=== PATIENT | female | born 1935 | race Caucasian/White ===

== ENCOUNTER 2018-08-11 09:53 | Inpatient (IN) ==
[2018-08-11] MEDS ORDERED: CARDIZEM IV ONE (10:22)
[2018-08-11 10:36] LABS: BASO# 0.02 X1000 (0.0-0.2); BASO% 0.2 % (0.0-0.8); EOS# 0.01 X1000 (0.0-0.7); EOS% 0.1 % (0.0-10.0); HEMATOCRIT 41.8 % (37.0-47.0); HEMOGLOBIN 13.8 g/dL (12.0-16.0); IMM GRAN# 0.02 X1000 (0.0-0.04); IMM GRAN% 0.2 % (0.0-0.5); LYMPH# 1.86 X1000 (1.2-3.4); LYMPH% 19.2 % (20.5-51.1); MCH 31.2 PG (27-31); MCV 94.6 FL (81-99); MONO# 0.68 X1000 (0.11-0.59); MPV 10.7 FL (7.4-10.4); NEUT% 73.3 % (42.2-75.2); PLT 331 X1000 (130-400); RBC 4.42 XMIL (4.2-5.4); RDW 13.6 % (11.5-14.5); WBC 9.69 X1000 (4.8-10.8)
--- NOTE | 2018-08-11 10:41 | Diag Imaging Result Doc PS360 ---
EXAM: CHEST-1 VIEW 08/11/2018 HISTORY: palpitations TECHNIQUE: AP portable upright at 1032 COMMENT: There are bilateral pleural effusions. There is interstitial pulmonary edema. There is compressive atelectasis in both lower lobes and the possibility of pneumonia cannot be excluded. None of these findings were present on 11/17/2012. IMPRESSION: Pleural effusions pulmonary edema and bibasilar atelectasis. Electronically signed by Bao Holley 08/11/2018 10:38 AM
[2018-08-11 10:50] LABS: INR 0.98; PROTIME 13.8 Seconds (11.0-16.0); PTT 26.7 Seconds (22.3-41.8)
[2018-08-11 11:00] LABS: ALB/GLOB RATIO 2.4; ALBUMIN 4.6 g/dL (3.5-5.0); CALCIUM 10.1 mg/dL (8.8-10.2); CREATININE 0.9 mg/dL (0.5-0.9); MAGNESIUM 2.2 mg/dL (1.5-2.7); POTASSIUM 4.4 mmol/L (3.5-5.1); TOTAL BILIRUBIN 0.85 mg/dL (0.20-1.00); TOTAL PROTEIN 6.5 g/dL (6.3-8.3)
--- NOTE | 2018-08-11 12:35 | EKG Report ---
Test Performed on : 08/11/2018 10:02:23 AM Test Reason : ED. NO EKG ORDER FOR MUSE Blood Pressure : / mmHG Vent. Rate : 138 BPM Atrial Rate : 366 BPM P-R Int : 000 ms QRS Dur : 084 ms QT Int : 320 ms P-R-T Axes : 000 084 047 degrees QTc Int : 484 ms Atrial flutter. with variable AV block. Nonspecific ST abnormality Abnormal ECG No previous ECGs available Unconfirmed Result
[2018-08-11] MEDS ORDERED: LASIX IV ONE (12:38)
[2018-08-11] MEDS: CARDIZEM 125 MG in NS 100 ML IV SCH (12:50)
[2018-08-11 13:00] LABS: T4 9.09 ug/dL (4.60-12.00); TSH 3.35 uIUmL (0.27-4.20)
[2018-08-11 15:23] LABS: BASO# 0.02 X1000 (0.0-0.2); BASO% 0.2 % (0.0-0.8); EOS# 0.01 X1000 (0.0-0.7); EOS% 0.1 % (0.0-10.0); HEMATOCRIT 40.1 % (37.0-47.0); IMM GRAN# 0.02 X1000 (0.0-0.04); IMM GRAN% 0.2 % (0.0-0.5); LYMPH# 2.06 X1000 (1.2-3.4); LYMPH% 22.3 % (20.5-51.1); MCH 31.1 PG (27-31); MCHC 32.4 g/dL (33-37); MCV 95.9 FL (81-99); MONO# 0.68 X1000 (0.11-0.59); MONO% 7.4 % (1.7-9.3); MPV 10.3 FL (7.4-10.4); NEUT# 6.46 X1000 (1.4-6.5); NEUT% 69.8 % (42.2-75.2); PLT 301 X1000 (130-400); RBC 4.18 XMIL (4.2-5.4); RDW 13.6 % (11.5-14.5); WBC 9.25 X1000 (4.8-10.8)
--- NOTE | 2018-08-11 15:36 | HISTORY AND PHYSICAL ---
PRIMARY CARE PROVIDER: Dr. Wilberto Mathews in [place]. BUSINESS ECONOMIST: Dr. Chopra at [facility] in [place]. CHIEF COMPLAINT: Shortness of breath. HISTORY OF PRESENT ILLNESS: Ms. Mcnamara is a very anxious 83-year-old female who carries a past medical history of anxiety, hyperlipidemia, coronary artery disease per her report, status post 7 stents, recent diagnosis in May with pneumonia, last week was diagnosed with bronchitis. This was an [place]; however, family states they did not believe that she had either one. She is on Cardizem for which she calls an "irregular heart rate", Aricept for "memory only", and on several medications for sleep. Per family, report she was headed to [place] today to see Dr. Chopra for her heart palpitations. However, she got so anxious she could not make it to her appointment. She just had to come to the ER today. She was found to be in atrial fibrillation/atrial flutter at 138 beats per minute. She was placed on a Cardizem drip. Chest x- ray showed pleural effusions, pulmonary edema and bibasilar atelectasis. She was given IV Lasix and will be admitted to [facility] with cardiology consult. Per family report, the patient's anxiety started 20 years ago when she became a and she would go to the doctor frequently; however, she remarried and became a again 2 years ago. Her anxiety has continued to progress. Per 3 siblings at the bedside, as of right now, there is a total of 5, she still lives at home alone. She does all of the care of her won home although she does not have to because they make her meals, they do her medications. They have someone come and clean her house as well as they all do her outside yard work, but they say at least 3 to 4 days out of the week, she has to be taken to various doctors appointments because she believes something is wrong with her or she wants to go to the ER every day. She calls the ambulance on a daily basis to come pick her. If the ambulance does not come pick her up, she will call the elders of the charge. She will call neighbors, who then in turn call the family and they have to go to her residence every day to make sure she is taking her medications and make sure that she actually has a reason to go to the hospital. However, sometimes she will call people who are nurses that she knows she will take her medication to their house and get their opinion. She takes medications as she sees fit. She was recently given an inhaler with Symbicort that they states she wears around her neck and she will just take several puffs throughout the day or any time she is feeling short of breath, even though it is a once a day inhaler. She reports that she has not been sleeping well because she cannot breathe even though she is on 1 medication for anxiety and 1 medication for sleep and 1 for muscle relaxer. She states that she normally takes her medications as she is supposed to, but then again she does not feel that she needs some of them and she occasionally drops them on the floor and the family will have to come and rearrange her medications. They stated she recently just got a bottle of Xanax. She took it to a nurse friend and now the bottle is missing. They are unsure of what happened to the medication. She does have home health with [facility]. She calls them frequently and they will come out and go over her medications with her and they will also help her know what each medication for and writes when she is to take it. The family is concerned with her well-being as well as the level of her anxiety, so we have spoken, we will consult [facility] and they would also like for her to speak with Deborah Vargas as well, and we will also get Palliative Care involved to speak with her about her disease progression as well as goals of care as far as her disease is concerned. PAST MEDICAL HISTORY: 1. Coronary artery disease status post 7 stents. 2. Per patient report, irregular heart rate from rheumatic fever as a child. She is on Cardizem. I think this is for her atrial fibrillation; however, she has not heard that word before. 3. Probable dementia. She does take Aricept. 4. Questionable recent diagnosis for pneumonia and bronchitis for which she was given a steroid inhaler as well as some antibiotics. 5. Anxiety. 6. Hyperlipidemia. 7. Gastroesophageal reflux disease. 8. Insomnia. PAST SURGICAL HISTORY: Status post 7 stents. SOCIAL HISTORY: She is from [place], which is where she resides. She lives alone. She does have home health with [facility]. She is a 2-time . No alcohol, tobacco, or illicit drug use. FAMILY HISTORY: Reviewed and noncontributory. REVIEW OF SYSTEMS: A 14 point review of systems complete and negative except for those mentioned in HPI. ALLERGIES: No known drug allergies. HOME MEDICATIONS: 1. Xanax XR 0.5 mg p.o. daily. 2. Aspirin 1 tab p.o. daily. 3. Lipitor 40 mg p.o. daily. 4. Symbicort 2 puffs at bedtime. 5. Keflex 500 mg p.o. t.i.d. 6. Vitamin D3, 5000 units p.o. daily. 7. Plavix 75 mg p.o. daily. 8. Cardizem 120 mg p.o. daily. 9. Aricept 5 mg p.o. at bedtime. 10. Ezetimibe 10 mg p.o. daily. 11. Loratadine 1 cap p.o. at bedtime. 12. Centrum Silver for Women 1 tab p.o. daily. 13. [place] Trevose-3 fatty acid fish oil 1 each p.o. daily. 14. Prilosec 20 mg p.o. daily. 15. Seroquel 25 mg p.o. at bedtime. 16. Zanaflex 4 mg p.o. at bedtime. 17. Desyrel 1 tab p.o. at bedtime. PHYSICAL EXAMINATION: VITAL SIGNS: Temperature is 97.8 degrees, heart rate 74, upon arrival 138, respirations 21, blood pressure 131/58, O2 is 96% on room air. GENERAL: Ms. Mcnamara is an 83-year-old female who appears somewhat anxious. I did watch her ambulate with the nurse to the restroom and back. She was short of breath for a couple of minutes after ambulating and was unable to speak in full sentences. However, she did recover quite quickly. HEENT: Atraumatic, normocephalic. PERRL. NECK: Supple. Trachea midline. No JVD appreciated. CARDIOVASCULAR: Irregular rhythm. No murmurs, gallops, or rubs noted. RESPIRATORY: Lung sounds relatively clear, bilaterally decreased in the bases. GASTROINTESTINAL: Soft, nontender, nondistended. Positive bowel sounds x4 quadrants. EXTREMITIES: Negative for edema. No clubbing, no cyanosis. NEUROLOGIC: Patient is anxious, alert, awake x4. Follows commands. Moves all extremities. No focal deficits noted. SKIN: Warm, dry and intact. DIAGNOSTIC DATA: 1. Chest x-ray. Pleural effusions, pulmonary edema, bibasilar atelectasis. 2. EKG shows atrial flutter with a variant AV block, nonspecific ST abnormality at 138 beats per minute. QTc was 484. LABORATORY DATA: White count 9, hemoglobin and hematocrit 13 and 41, platelet count is 331,000. Sodium 141, potassium 4.4, BUN 17, creatinine 0.9, blood glucose is 120. Mag 2.2. AST 50, ALT 99, alkaline phosphatase 130. ProBNP is 4893. TSH was 3.35, T4 of 9.09. ASSESSMENT AND PLAN: 1. Atrial flutter/atrial fibrillation. The patient has been placed on a Cardizem drip. She will be moved to [facility]. We will continue to trend cardiac enzymes. Consult Dr. Luther with Cardiology. Check an echocardiogram. Continue her aspirin and Plavix for now. She was on p.o. Cardizem. She states she did know that she had an irregular heart rhythm, but she was unaware of any atrial fibrillation. She thought it was an irregular heart rate from rheumatic fever as a child. 2. Congestive heart failure. However, patient is not on any diuretics or any other medications for her heart failure. She does have pulmonary edema on her chest x-ray as well as pleural effusions could. Be secondary to her atrial fibrillation. However, she has reported several weeks of not being able to lie down flat, has to sleep pretty much sitting up or propped up on several pillows. She does get short of breath with ambulation. Again, we will check an echocardiogram. Get Cardiology involved. Continue on IV Lasix. 3. Anxiety. Will continue on her home Xanax. Per family report, she is trying to either go to the doctor or the ER daily. She calls the ambulance daily. She calls home health on a regular basis to come to her residence. She will call neighbors, friends as well as other people who she knows in the nursing field will get their opinion about medications and she will base her taking of these medications off their opinions as well as several different physicians opinions on medication. Family states she makes at least 3 to 4 different doctors appointments weekly. However, surprisingly, she has not really been to this ER very much. She mainly goes to [place] and in an ED in [place]. 4. Transaminitis. We will hold her statins. Go ahead and check a hepatitis profile. Go ahead and check a right upper quadrant ultrasound. It is probably from congestion, but we will continue to monitor. There was no right upper quadrant tenderness upon examination. No nausea, no vomiting. 5. Insomnia. Will continue her home medications. 6. Coronary artery disease status post 7 stents per patient report. We will continue her aspirin and Plavix. Await cardiology's recommendations. Again, she follows Dr. Chopra at [facility] in [place]. 7. Gastroesophageal reflux disease. We will continue her Prilosec. 8. Recent diagnosis of questionable pneumonia and bronchitis. Per family report, she had gone to the ED so many times, they just feel like they had just diagnosed her with pneumonia and bronchitis and given her an inhaler that she has been abusing as well as antibiotics. However, her chest x-ray does not show any signs of pneumonia or bronchitis, so we will hold those medications for now. DISPOSITION: We will get [facility] as well as Palliative Care involved. Given her anxiety, again, we will probably get Deborah Vargas to come speak to her once her acute illness has resolved. The family and patient are in agreement with that as well. Further recommendations to follow physician evaluation, laboratory, and diagnostic data. Dictated by HARLAN Knet for Gaudencio Graham MD cc: MD Mc Ledezma MD Ramesh Reddy
[2018-08-11] MEDS ORDERED: LANOXIN IV ONE ×2 (15:41→18:00)
--- NOTE | 2018-08-11 16:34 | Diag Imaging Result Doc PS360 ---
EXAM: US GB < RUQ (LIMITED) 08/11/2018 HISTORY: elevated LFTs TECHNIQUE: Right upper quadrant ultrasound COMMENT: The pancreatic head is normal in appearance remainder is not well seen. The visualized portions of the aorta and inferior vena cava are within normal limits. The posterior portions of the liver are not as well seen however the liver is otherwise unremarkable in appearance. The gallbladder is clear but tender. There is no evidence of biliary dilatation the common bile duct measuring 5 mm. There is antegrade flow in the portal vein. The right kidney is without evidence of hydronephrosis or mass. There is a right pleural effusion. IMPRESSION: Positive sonographic Curry's sign without evidence of morphologic abnormality. Right pleural effusion. Electronically signed by Bao Holley 08/11/2018 4:32 PM
[2018-08-11] MEDS: LASIX IV SCH ×2 (18:12→20:30)
[2018-08-11] MEDS: ZANAFLEX PO SCH (20:29)
[2018-08-11] MEDS: SEROQUEL PO SCH (20:29)
[2018-08-11] MEDS: DESYREL PO SCH (20:29)
[2018-08-11] MEDS: ARICEPT PO SCH (20:30)
[2018-08-11] MEDS: CLARITIN PO SCH (20:30)
[2018-08-11] MEDS ORDERED: VALIUM PO ONE (21:27)
[2018-08-11 22:28] LABS: MAGNESIUM 1.9 mg/dL (1.5-2.7); POTASSIUM 3.6 mmol/L (3.5-5.1)
[2018-08-11] MEDS ORDERED: HALDOL IV PRN (23:10)
--- NOTE | 2018-08-11 23:14 | PROGRESS NOTE ---
DATE: 08/11/2018 SUBJECTIVE: Patient has no focal complaints. She presented with shortness of breath and chest pain. She has most likely a history of atrial fibrillation but it is not clear. She sees Cardiology in [place]. History of CAD as well. She was found to have atrial fibrillation with rapid ventricular response. The patient was admitted for treatment. Her pulmonary exam is fairly clear, some rales. She has an irregularly irregular heartbeat. She will be placed on Cardizem. Have a workup for atrial fibrillation, including CHF workup, echo, cardiac enzymes, thyroid function, and questionable pneumonia. We will continue to monitor closely. This is a saam-bd-onse encounter note with Kyara Armstrong. cc: Gaudencio Graham MD
[2018-08-12] MEDS: CARDIZEM 125 MG in NS 100 ML IV SCH (04:51)
[2018-08-12 05:44] LABS: BASO# 0.01 X1000 (0.0-0.2); BASO% 0.2 % (0.0-0.8); EOS# 0.04 X1000 (0.0-0.7); EOS% 0.6 % (0.0-10.0); HEMATOCRIT 37.1 % (37.0-47.0); HEMOGLOBIN 12.1 g/dL (12.0-16.0); LYMPH# 1.68 X1000 (1.2-3.4); LYMPH% 25.4 % (20.5-51.1); MCH 30.9 PG (27-31); MCHC 32.6 g/dL (33-37); MCV 94.6 FL (81-99); MONO% 10.6 % (1.7-9.3); MPV 10.5 FL (7.4-10.4); NEUT# 4.18 X1000 (1.4-6.5); NEUT% 63.2 % (42.2-75.2); PLT 271 X1000 (130-400); RBC 3.92 XMIL (4.2-5.4); RDW 13.2 % (11.5-14.5); WBC 6.61 X1000 (4.8-10.8)
[2018-08-12] MEDS: LASIX IV SCH ×3 (06:02→17:47)
[2018-08-12] MEDS: PRILOSEC PO SCH (06:02)
[2018-08-12 07:07] LABS: AGAP 11; ALB/GLOB RATIO 1.8; ALBUMIN 3.7 g/dL (3.5-5.0); ALKALINE PHOSPHATASE 104 U/L (32-104); BUN 17 mg/dL (8-22); CALCIUM 9.4 mg/dL (8.8-10.2); CHLORIDE 106 mmol/L (98-107); COSMO 285; CREATININE 0.8 mg/dL (0.5-0.9); ESTIMATED GFR > 60; GLUCOSE 105 mg/dL (70-104); GOT 36 U/L (10-30); GPT 74 U/L (10-36); POTASSIUM 3.5 mmol/L (3.5-5.1); SODIUM 142 mmol/L (136-145); TCO2 25 mmol/L (25-35); TOTAL PROTEIN 5.8 g/dL (6.3-8.3)
--- NOTE | 2018-08-12 07:12 | Diag Imaging Result Doc PS360 ---
EXAM: CHEST-PORTABLE 08/12/2018 HISTORY: follow up chf TECHNIQUE: AP portable at 0536 COMMENT: There is cardiomegaly. Compared to 08/11/2018 the pleural fluid collections have diminished considerably. There continues to be some interstitial pulmonary edema. IMPRESSION: Improved pleural effusions. Electronically signed by Bao Holley 08/12/2018 7:09 AM
--- NOTE | 2018-08-12 07:59 | EKG Report ---
Test Performed on : 08/12/2018 06:53:33 AM Test Reason : afib/flutter Blood Pressure : / mmHG Vent. Rate : 074 BPM Atrial Rate : 340 BPM P-R Int : 000 ms QRS Dur : 096 ms QT Int : 480 ms P-R-T Axes : 000 078 115 degrees QTc Int : 532 ms Atrial flutter. with variable AV block. with premature ventricular or aberrantly conducted complexes. T wave abnormality, consider anterior ischemia Prolonged QT Abnormal ECG When compared with ECG of 11-AUG-2018 10:02, (Unconfirmed) Vent. rate has decreased BY 64 BPM T wave inversion now evident in Anterior leads Unconfirmed Result
[2018-08-12] MEDS ORDERED: ASPIRIN EC PO SCH (09:00)
[2018-08-12] MEDS: VITAMIN D PO SCH (09:14)
[2018-08-12] MEDS: LANOXIN PO SCH (09:14)
[2018-08-12] MEDS: XANAX XR PO SCH (09:14)
[2018-08-12] MEDS: ELIQUIS PO SCH ×2 (09:19→20:07)
[2018-08-12] MEDS: FISH OIL CONCENTRATE PO SCH (09:19)
[2018-08-12] MEDS: CENTRUM SILVER PO SCH (09:19)
[2018-08-12] MEDS: PLAVIX PO SCH (09:19)
[2018-08-12] MEDS: LIPITOR PO SCH (09:19)
--- NOTE | 2018-08-12 13:30 | ECHO REPORT ---
ORDER DATE: 08/11/2018 INTERPRETING PHYSICIAN: Dr. Pool REQUESTING PHYSICIAN: CLINICAL INDICATIONS: 83-year-old female with atrial flutter, atrial fibrillation. M-MODE MEASUREMENTS: Left ventricle end diastole: 5.2 cm. Left ventricle end systole: 3.5 cm. Posterior wall: 1.1 cm. Interventricular septum: 1.1 cm. Left atrium: 5.5 cm. Aortic root: 2.9 cm. SUMMARY OF 2-DIMENSIONAL IMAGIN. The patient is in atrial fibrillation. 2. The left ventricle is not dilated. It shows preserved contractility, ejection fraction estimated at 55% to 60%. 3. The aortic valve opens normal. Color flow mapping indicates [id number] degree of regurgitation. 4. The pulmonic valve shows some [id number] degree of regurgitation. 5. The mitral valve is abnormal. It is scarred and it shows the classic hockey-stick appearance from rheumatic disease. 6. There is mild degree of mitral valve stenosis. The maximum gradient is 16 mm, mean gradient is 6 mm. 7. There is moderately severe degree of mitral regurgitation. 8. The left atrium is markedly enlarged. 9. The right atrium is moderately to significantly enlarged. 10.The tricuspid valve shows moderate degree of regurgitation. 11.Pulmonary pressure is estimated 55-60 mmHg. 12.There are bilateral pleural effusions. 13.There is a tiny pericardial effusion. SUMMARY: The study shows: 1. Preserved left ventricular systolic function, ejection fraction 55% to 60%. 2. Abnormal mitral valve with evidence of rheumatic valve disease with a mild degree of mitral valve stenosis and moderately severe degree of mitral regurgitation. 3. Markedly enlarged left atrium. 4. Bilateral pleural effusions. 5. Pulmonary systolic pressure of 55-60 mmHg. 6. Yjid-kn-ipfmeepe degree of aortic regurgitation with slight scarring of the aortic valve. Clinical correlation is strongly recommended. Consider transesophageal echocardiogram for further evaluation of the mitral valve leaflets. cc: Champ Pool MD
[2018-08-12] MEDS ORDERED: FLEXERIL PO PRN (14:35)
--- NOTE | 2018-08-12 15:00 | CONSULTATION ---
DATE OF CONSULTATION: 08/12/2018 IMPRESSION: 1. Atrial fibrillation with rapid ventricular rate with history of atrial fibrillation in the past. 2. Atypical chest pain, probably noncardiac. 3. 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 Patient also has mild to moderate aortic regurgitation. 4. Moderate pulmonary hypertension by Doppler. 5. Atherosclerotic coronary disease with multiple coronary stents in the past. 6. Suspected dementia. 7. Hyperlipidemia. RECOMMENDATIONS: 1. Add metoprolol for rate control as IV Cardizem is discontinued. 2. Continue digoxin. 3. Agree with switching from aspirin and Plavix to Eliquis 5 mg p.o. b.i.d., as patient has significant CHADS-VASc score and risk for thromboembolism related to her atrial fibrillation. 4. Agree with diuresis. 5. Conservative cardiovascular management overall. HISTORY: This 83-year-old white female with past history of atrial fibrillation, atypical chest pain, atherosclerotic coronary disease, rheumatic heart disease, suspected dementia, and anxiety was admitted through the emergency room for atrial fibrillation with rapid ventricular rate management. She normally sees a warehouse administrative assistant in [place]. She relates that she has recently had bronchitis. She describes some symptoms of shortness of breath and productive cough for which she was treated for bronchitis. She has had some recent fleeting sharp to dull left chest discomfort. For this reason, she felt she needed to go to [place] for evaluation. The fleeting chest discomfort seemed to be persistent and recurrent, and for this reason, she came to the emergency room here, thinking she could not make it to [place]. She was found to be in atrial fibrillation with rapid ventricular rate. She was also found to have bilateral pleural effusions and evidence of congestive heart failure. She has been started on intravenous Cardizem, Eliquis, and is being diuresed. She is a rather difficult historian, as she seems to be rather vague in describing her symptoms and has some memory issues. She does not describe anything that sounds like angina. PAST MEDICAL HISTORY: 1. Atrial fibrillation. 2. Rheumatic heart disease. 3. Atherosclerotic coronary disease with multiple previous coronary stents in the past. 4. Suspected dementia. She is being treated with Aricept. 5. Anxiety. 6. Hyperlipidemia. 7. Gastroesophageal reflux. ALLERGIES: She has no known drug allergies. MEDICATIONS PRIOR TO ADMISSION: As listed. SOCIAL HISTORY: She resides in her home in [place]. She does have siblings in the area and also has home health with [facility]. She is a . She does not smoke or use alcohol. FAMILY HISTORY: Negative for premature coronary disease. REVIEW OF SYSTEMS: Pulmonary: Noteworthy for recent cough and shortness of breath felt to be bronchitis, otherwise negative. Gastrointestinal: Negative. Constitutional: Negative. Remainder of the review of systems negative/noncontributory with 14 total systems reviewed. PHYSICAL EXAMINATION: General: An elderly white female in no distress on room air. Vital signs: Blood pressure 126/59, heart rate 77 and irregular with ECG monitor showing atrial fibrillation, oxygen saturation 98%. HEENT: Extraocular movements intact. Mucous membranes moist. Neck: Supple without jugular venous distention. Carotid bruits cannot be appreciated. Chest: Auscultation of the chest reveals diminished breath sounds in the most dependent part of the bases bilaterally. Cardiac: Exam reveals an irregular rate and rhythm without appreciable murmur or gallop. Abdomen: Soft. Bowel sounds are normal. Extremities: Without edema. Neurologic: Exam reveals her to be alert and responsive. Speech is fluent. She moves all 4 extremities equally well. PERTINENT DATA: A 12-lead EKG demonstrates atrial fibrillation with occasional premature ventricular aberrantly conducted complex, nonspecific T-wave abnormality, and mild QT prolongation. Echocardiography report indicates mild rheumatic mitral stenosis with moderate to severe mitral regurgitation, mild to moderate aortic regurgitation, moderate pulmonary hypertension by Doppler, and normal left ventricular ejection fraction. LABORATORY DATA: Includes a white blood cell count of 6.61, hematocrit 37.1 hemoglobin 12.1, platelet count 271,000. Sodium 142, potassium 3.5, chloride 106, carbon dioxide 25, BUN 17, creatinine 0.8, glucose 105. Initial pro-B-type natriuretic peptide level 4893. Troponin T less than 0.01. TSH 3.35. cc: Tucker Louis MD
--- NOTE | 2018-08-12 15:17 | PROGRESS NOTE ---
DATE: 08/12/2018 SUBJECTIVE: Patient has no focal complaints. OBJECTIVE: Blood pressure is 126/59, heart rate of 77, respiratory rate 18, temperature 97.8 degrees, 98% on 2 L.Cardiovascular: Regular rate and rhythm. Pulmonary: Bilateral breath sounds, clear to auscultation. GI: Soft, nontender, nondistended. Bowel sounds are positive. LABORATORY DATA: White count 6.6, hemoglobin and hematocrit 12 and 37, platelets 271,000. Basic was normal. AST and ALT are up mildly at 36 and 74. ProBNP decreased greatly at 2741. Chest x- ray shows definitive decrease in both pleural effusions. PROBLEM LIST: 1. Acute congestive heart failure exacerbation I guess diastolic at this point. Echo looks good or could be just reactive to atrial fibrillation with rapid ventricular response. 2. Atrial flutter, atrial fibrillation. She seems to be doing better. She is on Lopressor. I have started apixaban because she meets criteria. CHADS-VASc score she is 84. She is a female. She has a history of cardiac disease. She says she has had multiple stents so that is at least 3 that we know about, so she qualifies for anticoagulation. I will see about trying to get her off the Cardizem today, initiate low-dose Lopressor. It looks like Dr. Louis has seen her. I do not see his note. He initiated Lopressor on her try to see about taking her off the drip. 3. Elevated liver enzymes, probably related to, I am not really sure what it is related to. Hepatitis panel is pending. She is on atorvastatin which I am reluctant to stop considering her cardiac history, but we will monitor her liver functions and follow. We do not have a clear other source. We may have to hold her statin. DISPOSITION: Disposition pending her clinical status. I think she will need some physical therapy. She is very weak and cannot manage things on her own. cc: Gaudencio Graham MD
[2018-08-12] MEDS: LOPRESSOR PO SCH ×2 (15:29→20:07)
[2018-08-12] MEDS: SYMBICORT 80/4.5 MICROGM INHALER INH SCH (20:02)
[2018-08-12] MEDS: SEROQUEL PO SCH (20:07)
[2018-08-12] MEDS: ARICEPT PO SCH (20:07)
[2018-08-12] MEDS: DESYREL PO SCH (20:07)
[2018-08-12] MEDS: ZANAFLEX PO SCH (20:07)
[2018-08-12] MEDS: CLARITIN PO SCH (20:07)
[2018-08-12] MEDS: CARDIZEM PO SCH (20:08)
[2018-08-13] MEDS: CARDIZEM PO SCH ×4 (02:54→20:26)
[2018-08-13 05:27] LABS: BASO# 0.02 X1000 (0.0-0.2); BASO% 0.2 % (0.0-0.8); EOS# 0.03 X1000 (0.0-0.7); EOS% 0.4 % (0.0-10.0); HEMATOCRIT 39.1 % (37.0-47.0); HEMOGLOBIN 12.7 g/dL (12.0-16.0); LYMPH# 2.02 X1000 (1.2-3.4); LYMPH% 23.7 % (20.5-51.1); MCH 30.8 PG (27-31); MCHC 32.5 g/dL (33-37); MCV 94.9 FL (81-99); MONO# 0.94 X1000 (0.11-0.59); MPV 10.5 FL (7.4-10.4); NEUT# 5.52 X1000 (1.4-6.5); NEUT% 64.7 % (42.2-75.2); PLT 270 X1000 (130-400); RBC 4.12 XMIL (4.2-5.4); RDW 13.2 % (11.5-14.5); WBC 8.53 X1000 (4.8-10.8)
[2018-08-13 05:43] LABS: CALCIUM 9.5 mg/dL (8.8-10.2); MAGNESIUM 1.9 mg/dL (1.5-2.7); POTASSIUM 4.1 mmol/L (3.5-5.1)
[2018-08-13] MEDS: PRILOSEC PO SCH (06:06)
[2018-08-13] MEDS: VITAMIN D PO SCH (09:23)
[2018-08-13] MEDS: LIPITOR PO SCH (09:23)
[2018-08-13] MEDS: FISH OIL CONCENTRATE PO SCH (09:23)
[2018-08-13] MEDS: XANAX XR PO SCH (09:23)
[2018-08-13] MEDS: CENTRUM SILVER PO SCH (09:24)
[2018-08-13] MEDS: LANOXIN PO SCH (09:24)
[2018-08-13] MEDS: LOPRESSOR PO SCH ×2 (09:25→20:26)
[2018-08-13] MEDS: LASIX IV SCH ×2 (09:25→20:27)
[2018-08-13] MEDS: ELIQUIS PO SCH ×2 (09:25→20:26)
[2018-08-13] MEDS: PLAVIX PO SCH (09:25)
[2018-08-13 13:35] LABS: HEPATITIS PROFILE ACUTE SEE COMMENTS
--- NOTE | 2018-08-13 14:45 | PROGRESS NOTE ---
DATE: 08/13/2018 SUBJECTIVE: Patient reports feeling well. She denies any chest discomfort or dyspnea. She is off intravenous diltiazem drip. OBJECTIVE: Vital signs: Blood pressure 127/58, heart rate 71 and irregular with ECG monitor showing atrial fibrillation, oxygen saturation 95% on room air. Neck: There is no significant jugular venous distention. Chest: Clear to auscultation. Cardiac Exam: Reveals an irregular rate and rhythm without appreciable murmur or gallop. There is no evidence of peripheral edema. LABORATORY DATA: Includes a white blood cell count 8.53, hematocrit 39.1, hemoglobin 12.7, platelet count 270,000. Sodium 139, potassium 4.1, chloride 105, carbon dioxide 24, BUN 20, creatinine 1.0, glucose 105. IMPRESSIONS: 1. Atrial fibrillation. Heart rate now better controlled after addition of metoprolol. 2. 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 3. Moderate pulmonary hypertension by Doppler. 4. Atherosclerotic coronary disease with multiple coronary stents in the past. 5. Suspect dementia. 6. Hyperlipidemia. RECOMMENDATIONS: 1. Continue metoprolol and digoxin for rate control. 2. Agree with switching patient to Eliquis 5 mg p.o. b.i.d. as patient has significant CHADS-VASc score and associated significant risk for thromboembolism related to her atrial fibrillation. 3. She appears to be improved from a standpoint of volume overload with diuresis. Further diuresis does not appear to be needed at this point. 4. Conservative cardiovascular management overall. Patient appears to have improved significantly overall, such that she could be discharged to shelter facility as planned in the next 24 hours. cc: Tucker Louis MD
--- NOTE | 2018-08-13 16:55 | PROGRESS NOTE ---
DATE: 08/13/2018 SUBJECTIVE: Patient is resting comfortably in bed. OBJECTIVE: Vital signs: Temperature 97.8 degrees, pulse 84, respirations 17, blood pressure is 124/52, oxygen saturation is 95%. HEENT: Patient is atraumatic, normocephalic. Cardiovascular: S1, S2. Respiratory: Has evidence of good air entry bilaterally. Abdomen: Soft, nontender. No masses felt. Extremities: No evidence of edema. Central nervous system: No obvious focal deficit noted. LABORATORY DATA: WBC is 8.53, hematocrit is 39.4, with a platelet count of 270,000. Sodium is 139, potassium 4.1, chloride is 105, bicarb 24, BUN is 20, creatinine 1.0. AST 36, AST 74. Hepatitis panel negative. ASSESSMENT AND PLAN: 1. Acute congestive heart failure. A 2D echo of the heart shows preserved LV function so this is most likely secondary to diastolic dysfunction. Monitor I's and O's, as well as daily weights. Use diuretics as needed. Cardiology following. 2. Atrial fibrillation. Continue rate controlling agent as well as anticoagulation. Cardiology is following. 3. Abnormal liver function tests. This seems to be improving. The patient's hepatitis panel is within normal limits. This may be medication induced as the patient is currently on atorvastatin. We will also check an GALINA level, ferritin level, and also get an abdominal ultrasound. Continue to trend the patient's liver function tests.The other differential will be congestive hepatopathy. 4. Deep vein thrombosis prophylaxis. The patient is currently apixaban. 5. Gastrointestinal prophylaxis. PPI. cc: Bowen Valiente MD MTDSarah
[2018-08-13] MEDS: ZANAFLEX PO SCH (20:26)
[2018-08-13] MEDS: CLARITIN PO SCH (20:26)
[2018-08-13] MEDS: SEROQUEL PO SCH (20:26)
[2018-08-13] MEDS: ARICEPT PO SCH (20:26)
[2018-08-13] MEDS: DESYREL PO SCH (20:26)
[2018-08-13] MEDS: SYMBICORT 80/4.5 MICROGM INHALER INH SCH (21:00)
[2018-08-14] MEDS: CARDIZEM PO SCH ×5 (00:40→21:22)
[2018-08-14] MEDS: PRILOSEC PO SCH ×2 (05:50→06:10)
[2018-08-14 08:42] LABS: BASO# 0.02 X1000 (0.0-0.2); BASO% 0.2 % (0.0-0.8); EOS# 0.02 X1000 (0.0-0.7); EOS% 0.2 % (0.0-10.0); HEMATOCRIT 39.9 % (37.0-47.0); LYMPH# 2.04 X1000 (1.2-3.4); LYMPH% 25.2 % (20.5-51.1); MCH 30.6 PG (27-31); MCHC 32.6 g/dL (33-37); MCV 93.9 FL (81-99); MONO# 0.83 X1000 (0.11-0.59); MONO% 10.3 % (1.7-9.3); MPV 10.4 FL (7.4-10.4); NEUT# 5.18 X1000 (1.4-6.5); NEUT% 64.1 % (42.2-75.2); PLT 290 X1000 (130-400); RBC 4.25 XMIL (4.2-5.4); RDW 13.2 % (11.5-14.5); WBC 8.09 X1000 (4.8-10.8)
--- NOTE | 2018-08-14 08:43 | Diag Imaging Result Doc PS360 ---
EXAM: KNEE 3 VIEWS RIGHT 08/14/2018 HISTORY: effusion/pain TECHNIQUE: Right knee three views COMMENT: There are osteophytes in both the medial and lateral femoral condyles. There is chondrocalcinosis in the menisci. There may be some synovial osteochondromata in the intercondylar notch. 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 Electronically signed by Bao Holley 08/14/2018 8:40 AM
[2018-08-14] MEDS: PLAVIX PO SCH (09:01)
[2018-08-14] MEDS: LIPITOR PO SCH (09:01)
[2018-08-14] MEDS: XANAX XR PO SCH (09:02)
[2018-08-14] MEDS: LASIX IV SCH (09:02)
[2018-08-14] MEDS: FISH OIL CONCENTRATE PO SCH (09:02)
[2018-08-14] MEDS: LANOXIN PO SCH (09:02)
[2018-08-14] MEDS: LOPRESSOR PO SCH ×2 (09:02→21:21)
[2018-08-14] MEDS: VITAMIN D PO SCH (09:02)
[2018-08-14] MEDS: ELIQUIS PO SCH ×2 (09:02→21:21)
[2018-08-14] MEDS: CENTRUM SILVER PO SCH (09:02)
[2018-08-14 09:42] LABS: AGAP 11; ALB/GLOB RATIO 1.5; ALBUMIN 3.6 g/dL (3.5-5.0); ALKALINE PHOSPHATASE 111 U/L (32-104); BUN 19 mg/dL (8-22); CALCIUM 9.8 mg/dL (8.8-10.2); CHLORIDE 104 mmol/L (98-107); COSMO 282; CREATININE 0.8 mg/dL (0.5-0.9); ESTIMATED GFR > 60; GLUCOSE 96 mg/dL (70-104); GOT 23 U/L (10-30); GPT 46 U/L (10-36); POTASSIUM 4.1 mmol/L (3.5-5.1); SODIUM 140 mmol/L (136-145); TCO2 25 mmol/L (25-35); TOTAL BILIRUBIN 0.49 mg/dL (0.20-1.00); URIC ACID 4.6 mg/dL (2.4-5.7)
--- NOTE | 2018-08-14 10:28 | Diag Imaging Result Doc PS360 ---
EXAM: US ABDOMEN-COMPLETE 08/14/2018 HISTORY: abnormal lfts TECHNIQUE: Abdominal ultrasound COMMENT: The visualized portions of the aorta and inferior vena cava are within normal limits. The head and body the pancreas are normal in appearance. The liver is unremarkable. The kidneys are hyperechoic. There are multiple cysts. On the right side there is a 4 cm cyst in the lower pole and on the left side there is a 5.7 cm cyst posteriorly in the midportion. There is a complex appearing largely cystic lesion anteriorly in the left renal cortex measuring up to 2.1 cm. The spleen is not enlarged. There bilateral pleural effusions. The gallbladder is clear and nontender. There is no evidence of biliary dilatation the common bile duct measuring 5 mm. Compared to the previous examination of 08/11/2018 the appearance of the right upper quadrant has not changed significantly. The kidneys are more hyperechoic in appearance. IMPRESSION: Complex cystic lesion in the left kidney. Further violation with CT may be desirable. The possibility of medical renal disease cannot be excluded. Electronically signed by Bao Holley 08/14/2018 10:26 AM
[2018-08-14] MEDS ORDERED: DEPO-MEDROL INJ ONE (12:58)
[2018-08-14] MEDS ORDERED: XYLOCAINE 1% INJ ONE (13:51)
[2018-08-14] MEDS ORDERED: MARCAINE 0.25% INJ ONE (13:52)
--- NOTE | 2018-08-14 15:20 | CONSULTATION ---
DATE OF CONSULTATION: 08/13/2018 CHIEF COMPLAINT: Right knee pain. HISTORY OF PRESENT ILLNESS: This 83-year-old female was admitted for atrial fibrillation and heart irregularity. Started complaining of pain and tenderness about the right knee. She states she got up with a walker and was mobilized by the staff yesterday with some increased soreness in the right knee. She reports history of arthritis in the knee with pain in the past. She has had intermittent injections in it. She denies any acute trauma or injury. She states it is better today after an ice pack. PAST MEDICAL HISTORY: Significant for 1. Coronary disease with stent placement. 2. Cardiac arrhythmia with atrial fibrillation. 3. Possible early dementia. 4. Anxiety disorder. 5. Hyperlipidemia. 6. Reflux. 7. Insomnia. SURGICAL HISTORY: Status post stent placement. SOCIAL HISTORY: She resides in the [facility]. She is . Does not smoke or drink. FAMILY HISTORY: Noncontributory. PHYSICAL EXAM: Reveals roughly 1+ effusion about the right knee. There is some patellar crepitus. There is no varus or valgus instability. There is no redness or warmth to suggest infection. There is no signs of DVT. The knee is otherwise stable. X-RAYS: Reviewed of the knee, showed DJD of the knee. ASSESSMENT: Exacerbation of degenerative joint disease, right knee. PLAN: I have discussed options with the patient. She would like to try and have it injected prior to discharge from the hospital. We will make arrangements for one of our nurse practitioners to come by and inject her knee with a cortisone shot. We will follow up with her on an outpatient basis at this point. cc: Willard Lugo MD
--- NOTE | 2018-08-14 15:25 | CONSULTATION ---
DATE OF CONSULTATION: 08/14/2018 HISTORY OF PRESENT ILLNESS: Ms Mcnamara presented to the hospital with a recent diagnosis of pneumonia and bronchitis. She reports she has had a irregular heart rate. She was found to be in atrial fibrillation and flutter at 138 beats per minute. In emergency department she was placed on Cardizem drip. She was admitted to the ICU for monitoring. Orthopedics consulted for swelling in the right knee with ongoing pain. She reports this pain has been there for a while. PAST MEDICAL HISTORY: 1. CAD with 7 stents. 2. Irregular heart rates and rheumatic fever. 3. Probable dementia. 4. Most recent pneumonia and possible bronchitis. 5. Anxiety. 6. Hyperlipidemia. 7. GERD. 8. Insomnia. PAST SURGICAL HISTORY: Seven stents. SOCIAL HISTORY: She lives alone. She denies alcohol, tobacco, or illicit drug use. REVIEW OF SYSTEMS: A 14 point review of systems was performed and all negative except those listed in HPI. ALLERGIES: There are no known drug allergies. PHYSICAL EXAMINATION: General: The patient is awake sitting in hospital bed. HEENT: Atraumatic, normocephalic. PERRLA. Neck: Supple. Cardiovascular: There is a regular rhythm and fast rate. Respiratory: There is equal chest expansion, rise, fall. Gastrointestinal: Abdomen is soft, nontender. Extremities: Right lower extremity there is some swelling and tenderness along the medial aspect of the right knee. There is some crepitus with range of motion. There is negative Homans sign. There is no redness or signs of infection. DIAGNOSTICS: X-ray of the right knee shows DJD of the knee. ASSESSMENT: Degenerative joint disease of the right knee. We plan on doing a Depo-Medrol injection intraarticular. She is to follow up in office when she gets discharged. Dictated by HARLAN Wagner for Willard Lugo MD cc: HARLAN Wagner MD
--- NOTE | 2018-08-14 16:48 | PROGRESS NOTE ---
DATE: 08/14/2018 SUBJECTIVE: The patient is resting comfortably. She complains of pain in her right knee. She states that she cannot even stand on it. OBJECTIVE: Vital Signs: Temperature 98.7 degrees, blood pressure 148/56, heart rate 80, respirations 18, O2 saturations 100% on room air. Urine output 1.1 L. General: This is a chronically ill-appearing elderly female sitting in bed in no acute distress. Heart: S1, S2 normal. Regular rate and rhythm. Lungs: Clear to auscultation bilaterally. Abdomen: Positive bowel sounds. Soft, nontender, nondistended. Extremities: The patient has some swelling in her right knee. It is somewhat tender to touch. Neurologic: The patient is awake and alert. LABORATORY DATA: White blood cell count 8, hemoglobin 13, hematocrit 39, platelets 290,000. Sodium 140, potassium 4.1, AST 23, ALT 46. ASSESSMENT AND PLAN: 1. Atrial fibrillation. The patient is rate controlled. Continue on Lopressor, digoxin, and Eliquis. 2. Right knee osteoarthritis. We will consult with the orthopedic surgeon for possible joint injection. 3. Pulmonary hypertension. Aware. 4. Dementia. Continue on Aricept. 5. Complex cystic lesion in the left kidney. A CT of the abdomen and pelvis has been ordered. 6. Insomnia. Continue on trazodone. 7. Disposition. The patient should be stable for discharge on Friday to inpatient rehab. cc: June Vazquez MD MTDD
--- NOTE | 2018-08-14 21:19 | Diag Imaging Result Doc PS360 ---
EXAM: CT ABD/PELVIS W/PO AND IV CON INDICATION: complex cystic kidney lesion TECHNIQUE: This exam was performed using automated exposure control, adjustment of mA or kV according to patient size, and/or use of iterative reconstruction technique. COMPARISON: No prior CT is available for comparison. Comparison is to abdominal ultrasound dated 08/14/2018 FINDINGS: There are bilateral small to moderate-sized pleural effusions, larger on the right. There is bibasilar atelectasis. There is cardiomegaly. The liver, gallbladder, spleen, pancreas, and adrenal glands are unremarkable. There are a few simple appearing renal cysts associated with the left kidney. As opposed to the recent ultrasound, no complex cysts are identified on the left. There is a large simple cyst arising from the left kidney that measures up to 5.8 cm. There is no evidence of enhancement associated with the cyst on the left. However, on the right, there is a mildly complex cyst at the posterior aspect of the kidney that measures 4.0 x 2.8 cm axially. There are a couple of the septae that have regions that are minimally thickened. There is questionable very minimal enhancement involving these regions but it is not measurable. This cyst can be classified as Bosniak 2F consider at least ultrasound follow-up in 6 months. There is another simple cyst at the anterior aspect of the right kidney. The kidneys are unremarkable, otherwise. The urinary bladder is unremarkable. The reproductive tract is unremarkable as imaged. The GI tract is grossly unremarkable. No focal inflammatory changes, free abdominal gas, or free fluid is identified. IMPRESSION: 1.Several simple cysts involving both kidneys and a mildly complex Bosniak 2F cyst involving the posterior aspect of the right kidney. Please see above discussion. 2.Small to moderate-sized bilateral pleural effusions and bibasilar atelectasis. Electronically signed by Willard Plaza 08/14/2018 9:17 PM
[2018-08-14] MEDS: SEROQUEL PO SCH (21:21)
[2018-08-14] MEDS: ARICEPT PO SCH (21:21)
[2018-08-14] MEDS: CLARITIN PO SCH (21:22)
[2018-08-14] MEDS: DESYREL PO SCH (21:22)
[2018-08-14] MEDS: ZANAFLEX PO SCH (21:22)
[2018-08-14] MEDS: SYMBICORT 80/4.5 MICROGM INHALER INH SCH (22:05)
[2018-08-15] MEDS: CARDIZEM PO SCH ×4 (01:32→20:27)
[2018-08-15 05:39] LABS: BASO# 0.01 X1000 (0.0-0.2); BASO% 0.1 % (0.0-0.8); EOS# 0.02 X1000 (0.0-0.7); EOS% 0.2 % (0.0-10.0); HEMATOCRIT 37.9 % (37.0-47.0); HEMOGLOBIN 12.4 g/dL (12.0-16.0); LYMPH# 1.78 X1000 (1.2-3.4); LYMPH% 21.5 % (20.5-51.1); MCH 30.6 PG (27-31); MCHC 32.7 g/dL (33-37); MCV 93.6 FL (81-99); MONO# 0.97 X1000 (0.11-0.59); MONO% 11.7 % (1.7-9.3); MPV 10.3 FL (7.4-10.4); NEUT# 5.49 X1000 (1.4-6.5); NEUT% 66.5 % (42.2-75.2); PLT 279 X1000 (130-400); RBC 4.05 XMIL (4.2-5.4); WBC 8.27 X1000 (4.8-10.8)
[2018-08-15] MEDS: PRILOSEC PO SCH (06:04)
[2018-08-15 06:07] LABS: ALB/GLOB RATIO 1.4; ALBUMIN 3.4 g/dL (3.5-5.0); CALCIUM 9.5 mg/dL (8.8-10.2); CREATININE 0.9 mg/dL (0.5-0.9); DIRECT BILIRUBIN 0.1 mg/dL (0.00-0.20); POTASSIUM 3.9 mmol/L (3.5-5.1); TOTAL BILIRUBIN 0.62 mg/dL (0.20-1.00); TOTAL PROTEIN 5.8 g/dL (6.3-8.3)
[2018-08-15] MEDS: LIPITOR PO SCH (09:23)
[2018-08-15] MEDS: CENTRUM SILVER PO SCH (09:23)
[2018-08-15] MEDS: LOPRESSOR PO SCH ×2 (09:23→20:26)
[2018-08-15] MEDS: FISH OIL CONCENTRATE PO SCH (09:23)
[2018-08-15] MEDS: VITAMIN D PO SCH (09:23)
[2018-08-15] MEDS: XANAX XR PO SCH (09:23)
[2018-08-15] MEDS: LANOXIN PO SCH (09:23)
[2018-08-15] MEDS: PLAVIX PO SCH (09:23)
[2018-08-15] MEDS: ELIQUIS PO SCH ×2 (09:24→20:26)
--- NOTE | 2018-08-15 13:48 | PROGRESS NOTE ---
DATE: 08/15/2018 SUBJECTIVE: The patient is resting comfortably in bed. She states that her right knee feels better after the joint injection that she received yesterday. OBJECTIVE: Vital Signs: Temperature 98.5 degrees, blood pressure 142/79, heart rate 73, respirations 18, O2 saturation 98% on room air. General: This is a chronically ill-appearing, elderly female, lying in bed in no acute distress. Heart: S1, S2 normal. Regular rate and rhythm. Lungs: Equal air entry bilaterally. No crackles. No rales. Abdomen: Positive bowel sounds. Soft, nontender, nondistended. Extremities: No edema, no cyanosis. Neurologic: The patient is alert and oriented x3. LABS: Reviewed. ASSESSMENT AND PLAN: 1. Atrial fibrillation. The patient is rate controlled. Continue on Lopressor, digoxin and Eliquis. 2. Right knee osteoarthritis status post steroid injection. Improved. Continue with physical therapy. 3. Pulmonary hypertension. Aware. 4. Right complex renal cyst. The patient will need to follow up ultrasound in 6 months. 5. Bilateral pleural effusions. Stable. 6. Anxiety disorder. Continue on Xanax. 7. Hypertension. Controlled. 8. Disposition: The patient will be discharged to inpatient rehabilitation on Friday. cc: June Vazquez MD MTDD
[2018-08-15] MEDS: DESYREL PO SCH (20:26)
[2018-08-15] MEDS: CLARITIN PO SCH (20:26)
[2018-08-15] MEDS: ARICEPT PO SCH (20:26)
[2018-08-15] MEDS: ZANAFLEX PO SCH (20:27)
[2018-08-15] MEDS: SEROQUEL PO SCH (20:27)
[2018-08-15] MEDS: SYMBICORT 80/4.5 MICROGM INHALER INH SCH (21:33)
[2018-08-16] MEDS: CARDIZEM PO SCH ×4 (05:20→22:30)
[2018-08-16 06:03] LABS: BASO# 0.02 X1000 (0.0-0.2); BASO% 0.3 % (0.0-0.8); EOS# 0.02 X1000 (0.0-0.7); EOS% 0.3 % (0.0-10.0); HEMATOCRIT 38.5 % (37.0-47.0); HEMOGLOBIN 12.3 g/dL (12.0-16.0); LYMPH# 2.25 X1000 (1.2-3.4); LYMPH% 30.8 % (20.5-51.1); MCH 30.1 PG (27-31); MCHC 31.9 g/dL (33-37); MCV 94.1 FL (81-99); MONO# 0.83 X1000 (0.11-0.59); MONO% 11.4 % (1.7-9.3); MPV 10.6 FL (7.4-10.4); NEUT# 4.18 X1000 (1.4-6.5); NEUT% 57.2 % (42.2-75.2); PLT 272 X1000 (130-400); RBC 4.09 XMIL (4.2-5.4)
[2018-08-16] MEDS: PRILOSEC PO SCH (06:26)
[2018-08-16 06:27] LABS: AGAP 10; BUN 20 mg/dL (8-22); CHLORIDE 108 mmol/L (98-107); COSMO 284; CREATININE 0.8 mg/dL (0.5-0.9); ESTIMATED GFR > 60; GLUCOSE 104 mg/dL (70-104); POTASSIUM 4.1 mmol/L (3.5-5.1); SODIUM 141 mmol/L (136-145); TCO2 23 mmol/L (25-35)
[2018-08-16] MEDS: LANOXIN PO SCH (08:31)
[2018-08-16] MEDS: LIPITOR PO SCH (08:31)
[2018-08-16] MEDS: LOPRESSOR PO SCH ×2 (08:31→22:29)
[2018-08-16] MEDS: FISH OIL CONCENTRATE PO SCH (08:31)
[2018-08-16] MEDS: XANAX XR PO SCH (08:31)
[2018-08-16] MEDS: ELIQUIS PO SCH ×2 (08:31→22:28)
[2018-08-16] MEDS: PLAVIX PO SCH (08:31)
[2018-08-16] MEDS: CENTRUM SILVER PO SCH (08:31)
[2018-08-16] MEDS: VITAMIN D PO SCH (08:31)
--- NOTE | 2018-08-16 15:55 | PROGRESS NOTE ---
DATE: 08/16/2018 SUBJECTIVE: The patient is resting comfortably in bed. No acute events noted overnight. OBJECTIVE: Vital Signs: Temperature 97.8, blood pressure 149/48, heart rate 61, respirations 16. O2 sats 98% on room air. General: This is an elderly female lying in bed in no acute distress. Heart: S1, S2 normal. Regular rate and rhythm. Lungs: Equal air entry bilaterally. No crackles. No rales. Abdomen: Positive bowel sounds. Soft. Nontender, nondistended. Extremities: No edema. No cyanosis. Neurologic: The patient is alert and oriented. LABS: Reviewed. ASSESSMENT AND PLAN: 1. Atrial fibrillation. The patient is rate controlled. Continue on the current cardiac regimen. 2. Right knee osteoarthritis, status post steroid injection. Improved. Continue with physical therapy. 3. Right complex renal cyst. The patient will need a followup ultrasound in 6 months. 4. Pulmonary hypertension. Aware. 5. Bilateral pleural effusions. Stable. 6. Anxiety disorder. Continue on Xanax. 7. Hypertension. Controlled. 8. Disposition. The patient will be discharged to rehab tomorrow. cc: June Vazquez MD MTDD
[2018-08-16] MEDS: SYMBICORT 80/4.5 MICROGM INHALER INH SCH (21:34)
[2018-08-16] MEDS: ZANAFLEX PO SCH (22:28)
[2018-08-16] MEDS: ARICEPT PO SCH (22:29)
[2018-08-16] MEDS: CLARITIN PO SCH (22:29)
[2018-08-16] MEDS: SEROQUEL PO SCH (22:29)
[2018-08-16] MEDS: DESYREL PO SCH (22:29)
[2018-08-17] MEDS: CARDIZEM PO SCH ×2 (02:13→10:25)
[2018-08-17 06:40] LABS: AGAP 10; BUN 20 mg/dL (8-22); CALCIUM 9.4 mg/dL (8.8-10.2); CHLORIDE 108 mmol/L (98-107); COSMO 286; CREATININE 0.8 mg/dL (0.5-0.9); ESTIMATED GFR > 60; GLUCOSE 95 mg/dL (70-104); POTASSIUM 4.1 mmol/L (3.5-5.1); SODIUM 142 mmol/L (136-145); TCO2 24 mmol/L (25-35)
[2018-08-17] MEDS: ELIQUIS PO SCH (10:25)
[2018-08-17] MEDS: PLAVIX PO SCH (10:25)
[2018-08-17] MEDS: LIPITOR PO SCH (10:26)
[2018-08-17] MEDS: LOPRESSOR PO SCH (10:26)
[2018-08-17] MEDS: FISH OIL CONCENTRATE PO SCH (10:26)
[2018-08-17] MEDS: CENTRUM SILVER PO SCH (10:27)
[2018-08-17] MEDS: VITAMIN D PO SCH (10:27)
[2018-08-17] MEDS: LANOXIN PO SCH (10:27)
[2018-08-17] MEDS: XANAX XR PO SCH (10:39)
[2018-08-17] MEDS: PRILOSEC PO SCH (10:39)
--- NOTE | 2018-08-17 10:40 | DISCHARGE SUMMARY ---
ADMISSION DATE: 08/11/2018 DISCHARGE DATE: AUTOMATION ENGINEER: Dr. Chopra at [facility]. FINAL DISCHARGE DIAGNOSES: 1. Paroxysmal atrial fibrillation. 2. Right complex renal cyst. 3. Right knee osteoarthritis, status post steroid injection. 4. Pulmonary hypertension. 5. Bilateral pleural effusions. 6. Anxiety disorder. 7. Hypertension. 8. Severe mitral valve regurgitation. 9. Mild mitral valve stenosis. CONSULTATIONS REQUESTED DURING THIS HOSPITAL STAY: 1. Cardiology consultation with Dr. Pool. 2. Orthopedic consultation with Dr. Lugo. PROCEDURES: Steroid injection to the right knee. HOSPITAL COURSE: Ms. Mcnamara is an 83-year-old female with a history of coronary artery disease, anxiety disorder, hypertension and dyslipidemia, who presented to the ER with a chief complaint of shortness of breath. Upon arrival to the ER, the patient was noted to be in atrial fibrillation with RVR with a heart rate in the 138 range. The patient was started on a Cardizem drip and admitted to the hospitalist service. The patient was admitted to the CICU and Cardiology was consulted. An echocardiogram was done that revealed severe mitral valve regurgitation, mild mitral valve stenosis and pulmonary hypertension. Adjustments were made to the patient's rate control medications. The patient was also started on Eliquis. The patient started to improve, however, she complained of inability to bear weight on her right knee. As a result, an x-ray was done of the right knee that revealed calcium pyrophosphate deposition within the joint as well as synovial osteochondromatosis. The patient was seen by the orthopedic surgeon who did a steroid joint injection. The patient stated that following the injection, she was able to bear weight and ambulate without any difficulty. At this time, the patient is currently rate controlled. She denies having any shortness of breath. On the day of discharge, the patient was noted to have a BUN of 20 with a creatinine of 0.8 and potassium of 4.1. The patient is currently medically stable for discharge to [facility]. DISCHARGE MEDICATIONS: 1. Digoxin 125 mcg oral daily. 2. Lopressor 25 mg oral every 12 hours. 3. Eliquis 5 mg oral twice a day. 4. Lasix 40 mg p.o. daily p.r.n. for swelling. 5. Aricept 5 mg oral at bedtime. 6. Trazodone 100 mg oral at bedtime. 7. Aspirin 81 mg p.o. daily. 8. Diltiazem 120 mg p.o. daily. 9. Vitamin D3, 5000 units oral daily. 10. Symbicort 2 puffs at bedtime. 11. Tizanidine 4 mg oral at bedtime. 12. Loratadine 10 mg p.o. at bedtime. 13. Seroquel 25 mg oral at bedtime. 14. Prilosec 20 mg p.o. every morning. 15. Zetia 10 mg oral daily. 16. Plavix 75 mg oral daily. 17. Xanax 0.5 mg oral daily. 18. Multivitamin 1 tab oral daily. 19. Lipitor 40 mg p.o. daily. DISCHARGE DIET: Low-sodium, low-cholesterol. ACTIVITY: As tolerated. FOLLOWUP INSTRUCTIONS: The patient will need to follow up with Dr. Farrell in 2 weeks. The patient will need a followup renal ultrasound in 6 months to assess the right complex renal cyst seen on CT. cc: MD Dayron Johnston MD
[2018-08-17 12:14] VITALS: BP 153/65
--- NOTE | 2018-08-23 09:34 | PROVIDER DOCUMENTATION ---
This chart was entered by Chato Hsu Scribe, acting as scribe for Nain Mcdonald MD. HPI-Respiratory General - General Chief Complaint: Shortness of Breath Stated Complaint: sob Time Seen by Provider: 08/11/18 10:08 Source: patient Allergies/Adverse Reactions: Patient Allergies Allergy/AdvReac Type Severity Reaction Status Date / Time No Known Allergies Allergy Verified 08/11/18 12:53 Home Medications: Home Medication List Medication Instructions Recorded Confirmed Last Taken Type Alprazolam E.r. [Xanax Xr] 0.5 mg PO DAILY 08/11/18 08/11/18 Unknown History Aspirin EC 1 tab PO DAILY 08/11/18 08/11/18 Unknown History Atorvastatin Calcium [Lipitor] 40 mg PO DAILY 08/11/18 08/11/18 Unknown History Budesonide/Formoterol Fumarate 2 inhaler INH QHS 08/11/18 08/11/18 Unknown History [Symbicort 80-4.5 Mcg Inhaler] Cholecalciferol (Vitamin D3) 5,000 unit PO DAILY 08/11/18 08/11/18 Unknown History [Vitamin D3] Clopidogrel Bisulfate [Plavix] 75 mg PO DAILY 08/11/18 08/11/18 Unknown History Diltiazem HCl [Cardizem] 120 mg PO DAILY 08/11/18 08/11/18 Unknown History Donepezil [Aricept] 5 mg PO QHS 08/11/18 08/11/18 Unknown History Ezetimibe 10 mg PO DAILY 08/11/18 08/11/18 Unknown History Loratadine 1 cap PO QHS 08/11/18 08/11/18 Unknown History Multivit-Min/Iron/Folic/Lutein 1 tab PO DAILY 08/11/18 08/11/18 Unknown History [Centrum Silver Women Tablet] [place]-3 Fatty Acids/Fish Oil 1 ea PO DAILY 08/11/18 08/11/18 Unknown History [[place] 3 1,000 mg Softgel] Omeprazole [Prilosec] 20 mg PO DAILY@0700 08/11/18 08/11/18 Unknown History Quetiapine [Seroquel] 25 mg PO HS 08/11/18 08/11/18 Unknown History Tizanidine [Zanaflex] 4 mg PO QHS 08/11/18 08/11/18 Unknown History Trazodone [Desyrel] 1 tab PO QHS 08/11/18 08/11/18 Unknown History Apixaban [Eliquis] 5 mg PO BID tab 08/16/18 Unknown Rx Digoxin [Lanoxin] 125 microgm PO DAILY tab 08/16/18 Unknown Rx Furosemide [Lasix] 40 mg PO DAILY PRN #30 tab 08/16/18 Unknown Rx Metoprolol [Lopressor] 25 mg PO Q12HR tab 08/16/18 Unknown Rx - History of Present Illness-Resp Nature of Presenting Problem: Pt is a 83 y/o F presents to the ED with SOB that has worsened the last couple of days. Pt reports she has not able to lie flat to sleep or rest. Pt reports within the last 2 months she had pneumonia and is now taking an antibiotic for Bronchitis. She also takes Areocept. She says the back pain has also worsened the last few days. Quality of Pain: reports: aching Severity in ED: reports: moderate Onset/Duration: reports: 3 days ago Timing: reports: still present, getting worse Exposure: reports: unknown cause Cough Quality/Degree: reports: no cough Current Respiratory Medication Therapy: Initiated see nurses note Modifying Factors: improves with: sitting upright Associated Symptoms: reports: muscle/bodyaches, shortness of breath. denies: fever/chills, nasal congestion Similar Symptoms Previously?: Yes Recently seen or treated by another doctor?: Yes Review of Systems - Adult - REVIEW OF SYSTEMS - ADULT Constitutional: denies: chills, fever Eyes: reports: no symptoms reported Ears, Nose, Mouth & Throat: reports: no symptoms reported Cardiovascular: reports: edema. denies: chest pain Respiratory: reports: shortness of breath. denies: cough, wheezing Gastrointestinal: denies: abdominal pain, nausea, vomiting Genitourinary: denies: dysuria, discharge Musculoskeletal: reports: back pain. denies: bone pain Integumentary: reports: no symptoms reported Neurological: denies: dizziness/vertigo, headache/migraines, slurred speech Psychiatric: reports: no symptoms reported Endocrine: reports: no symptoms reported Hematologic/Lymphatic: reports: no symptoms reported Allergic/Immunologic: reports: no symptoms reported All Other Systems: Reviewed and Negative Past History - Adult - PAST MEDICAL HISTORY-ADULT Review of Records: reports: Old Records Reviewed, Nursing Assessment Review, Medications Reviewed - SOCIAL HISTORY Smoking: non-smoker Substance Use: none/never Living Situation: alone Physical Exam-General - PHYSICAL EXAM-ADULT Initial Vital Signs Reviewed: Yes - CONSTITUTIONAL General Appearance: appears well, alert, no apparent distress - EYES Eyes: PERRL/EOMI, pink conjunctivae - HEAD, EARS, NOSE, MOUTH & THROAT HENMT: moist mucous membranes, normal ENT inspection, pharynx normal - NECK Neck: non-tender, full range of motion, supple, normal inspection - RESPIRATORY Respiratory: no pleuratic chest pain, no respiratory distress, accessory muscle use, crackles (bilateral base), increased rate - CARDIOVASCULAR Cardiovascular: normal peripheral pulses, tachycardia - GASTROINTESTINAL (ABDOMEN) Abdominal Exam: normal bowel sounds, non tender, soft - MUSCULOSKELETAL Back Exam: normal inspection, no CVA tenderness, no vertebral tenderness Extremity: normal range of motion, non-tender, normal gait, pedal edema (trace) - SKIN Integumentary: normal color, normal turgor, warm/dry - NEUROLOGIC Neurologic: grossly normal, no motor/sensory deficits - PSYCHIATRIC Psych/Mental Status: normal mood/affect, normal thought content, normal thought process, oriented x 3 Progress - PLAN OF CARE/RESULTS Progress/Plan/Lab Results: Orders Category Date Time Status Admit - [facility] Routine AdmDCTranf 08/11/18 14:30 Active Activity Type EVERY SHIFT NURSING Care 08/11/18 14:30 Active Cardiac Monitoring DIRECTED Care 08/11/18 10:23 Completed Daily Weights 0600 Care 08/11/18 14:30 Active Intake and Output-Strict Q 8-HR ASSESS Care 08/11/18 14:30 Active Nursing- MD Consult Request ROUTINE Care 08/11/18 14:30 Completed Oxygen Therapy- ED Nursing DIRECTED Care 08/11/18 10:23 Completed Saline Loc NOW Care 08/11/18 10:23 Completed Use Oxygen.Protocol ORDERED Care 08/11/18 14:30 Completed Weight on Admission ORDERED Care 08/11/18 14:30 Completed Z-Document. for Tele Applied ORDERED Care 08/11/18 14:30 Completed Physician/Provider Consults Routine Cons 08/11/18 14:30 Ordered CHEST-1 VIEW [RAD] Stat Exams 08/11/18 10:24 Completed CHEST-PORTABLE [RAD] Routine Exams 08/12/18 06:00 Completed US GB < RUQ (LIMITED) [US] Routine Exams 08/11/18 14:30 Completed CBC WITH DIFF [HEME] Routine Lab 08/11/18 15:13 Completed CBC WITH ELECTRONIC DIFF [HEME] Stat Lab 08/11/18 10:05 Completed CK PROFILE [SP CHEM] Q8H Lab 08/11/18 15:13 Completed CK PROFILE [SP CHEM] Q8H Lab 08/11/18 21:56 Completed CK PROFILE [SP CHEM] Stat Lab 08/11/18 10:05 Completed COMPREHENSIVE METABOLIC PANEL [CHEM] Stat Lab 08/11/18 10:05 Completed HEPATITIS PROFILE [HH] Routine Lab 08/12/18 05:10 Completed MAGNESIUM [CHEM] Routine Lab 08/12/18 05:10 Completed MAGNESIUM [CHEM] Stat Lab 08/11/18 10:05 Completed PRO B-NATRIURETIC PEPTIDE Routine Lab 08/12/18 05:10 Completed PRO B-NATRIURETIC PEPTIDE Stat Lab 08/11/18 10:05 Completed PROTIME WITH INR [COAG] Stat Lab 08/11/18 10:05 Completed PTT [COAG] Stat Lab 08/11/18 10:05 Completed T4 Stat Lab 08/11/18 10:05 Completed TROPONIN T Q8H Lab 08/11/18 15:13 Completed TROPONIN T Q8H Lab 08/11/18 21:56 Completed TROPONIN T Stat Lab 08/11/18 10:05 Completed TSH Stat Lab 08/11/18 10:05 Completed 0.9% Sodium Chloride Inj [Ns] 100 ml Med 08/11/18 12:30 Discontinued Diltiazem [Cardizem] 125 mg IV As Directed mls/hr Alprazolam E.r. [Xanax Xr] Med 08/12/18 09:00 Discontinued 0.5 mg PO DAILY Aspirin EC Med 08/12/18 09:00 Discontinued 81 mg PO DAILY Cholecalciferol (Vit D3) [Vitamin D] Med 08/12/18 09:00 Discontinued 5,000 unit PO DAILY Clopidogrel [Plavix] Med 08/12/18 09:00 Discontinued 75 mg PO DAILY Diltiazem [Cardizem] Med 08/11/18 10:22 Discontinued 18 mg IV NOW ONE Donepezil [Aricept] Med 08/11/18 21:00 Discontinued 5 mg PO QHS Furosemide [Lasix] Med 08/11/18 18:00 Discontinued 40 mg IV BID Furosemide [Lasix] Med 08/11/18 12:38 Discontinued 40 mg IV NOW ONE Loratadine [Claritin] Med 08/11/18 21:00 Discontinued 10 mg PO QHS Multivitamins/Minerals [Centrum Silver] Med 08/12/18 09:00 Discontinued 1 each PO DAILY [place]-3 Fatty Acids [Fish Oil Concentrate] Med 08/12/18 09:00 Discontinued 1,000 mg PO DAILY Omeprazole [Prilosec] Med 08/12/18 07:00 Discontinued 20 mg PO DAILY@0700 Quetiapine [Seroquel] Med 08/11/18 21:00 Discontinued 25 mg PO HS Tizanidine [Zanaflex] Med 08/11/18 21:00 Discontinued 4 mg PO QHS Trazodone [Desyrel] Med 08/11/18 21:00 Discontinued 100 mg PO QHS Telemetry [OM.EQ] Routine Oth 08/11/18 14:30 Active EKG [EKG] Routine Ther 08/12/18 06:00 Draft EKG [EKG] Stat Ther 08/11/18 10:00 Draft Echo Spec/Color Dop W/O Contra Routine Ther 08/11/18 14:30 Completed Transfer/Admit Order [TRANSFER] Routine Transfer 08/11/18 12:59 Completed Result Diagrams: 08/16/18 05:21 08/17/18 05:57 - EKG 1 Time of EKG reading by physician:: 10:02 EKG Read and Signed by:: Nain Mcdonald EKG Interpretation (*Must complete 3 of following elements*): Abnormal Rate: 138 Rhythm: Atrial flutter with variable AV block Comments: Nonspecific ST abnormality - XRAY 1 XRAY Study: Chest Impression: Abnormal ( EXAM: CHEST-1 VIEW 08/11/2018 HISTORY: palpitations TECHNIQUE: AP portable upright at 1032 COMMENT: There are bilateral pleural effusions. There is interstitial pulmonary edema. There is compressive atelectasis in both lower lobes and the possibility of pneumonia cannot be e xcluded. None of these findings were present on 11/17/2012. IMPRESSION: Pleural effusions pulmonary edema and bibasilar atelectasis. Electronically signed by Bao Holley 08/11/2018 10:38 AM) - CONSULTS/PCP/HOSPITALIST Notification #1 *Consult/PCP/Hospitalist*: Hospitalist- Dr Graham, Spoke with Leelee Time Discussed: 12:46 Reason/Comments: admission Consult Disposition: other (accepts) Departure - Departure Date of Disposition Decision: 08/11/18 Time of Disposition Decision: 16:20 DIAGNOSIS: Congestive heart failure (CHF), Bilateral pleural effusion Disposition: ADMITTED INPATIENT 09 Certified Medical Emergency: Emergent Condition: Stable - Critical Care Note This patient required my direct & personal management of CC.: No Attestation - Physician/ MICHAELA Attestation The physician spent face to face time with patient:: Yes Advanced Practice Provider documentation review:: Supervising physician onsite and consulted in the evaluation and care of this patient. The physician did have a face to face encounter with the patient. This chart was documented by the indicated scribe, (Chato Hsu Scribe) and accurately reflects the services I performed and decisions made by me, Nain Mcdonald MD, as attested by the provider's signature.
--- NOTE | 2018-08-24 09:54 | OPERATIVE NOTE ---
PROCEDURE DATE: 08/14/2018 PROCEDURE: Right knee Depo-Medrol injection. PROCEDURE NOTE: The patient was sat up on the side of the bed with the knee flexed at 90 degrees. The right knee was prepped with Betadine. An intra-articular injection of Depo- Medrol, lidocaine, and the bupivacaine was injected into the right knee joint. There are no complications. The Estimated Blood Loss was less than 1 mL. Patient tolerated the procedure well, and the site was covered with a Band-Aid. Dictated by HARLAN Wagner for Willard Lugo MD cc: HARLAN Wagner MD MTDD
== END 2018-08-17 14:05 | DRG 308 ==
LOC: SUPCPDRO → ED 09:53 → SUATTDRO 13:43 → 3S 13:43 → 4N 08-16 16:16
PROVIDERS: ATTEND Internal Medicine
CPT/HCPCS: 71010; 71045; 73562; 74177; 76700; 76705; 80048; 80053; 80074; 80076; 82248; 82550; 82728; 83735; 83880; 84132; 84436; 84443; 84484; 84550; 85025; 85610; 85730; 86038; 86039; 93005; 93010; 93306; 94640; 94761; 96365; 96375; 97161; 99285; A9270; J1040; J1160; J1940; Q9967; S0020